=== PATIENT | male | born 1945 | race Caucasian/White ===

== ENCOUNTER → 2022-09-20 | Outpatient (CLI) | payer OTHER ==
[~2022-09-20] MED LIST: ASPI81TA26 PO; CELE1CAP9 PO; COMBAER6 INH; COQ-100C5 PO; EZET10TA21 PO; FLUT1BLS3 INH; HOME MED LIST COMPLETE! XX SCH; LIDOCAINE 1% MDV 20ML VIAL As Ordered ONE; LISI20TA33 PO; LISI40TA4 PO; METO1TAB32 PO; ROSU40TA4 PO; SPIR1AER INH; SPIR1CAP INH; VITA100093 PO; VITMTA PO
[2022-09-20 08:45] LABS: HEMATOCRIT 40.7 % (42.0-52.0); HEMOGLOBIN 14.1 g/dl (13.5-17.5); MEAN CORPUSCULAR HEMOGLOBIN 33.1 pg (27.0-33.0); MEAN CORPUSCULAR HGB CONC 34.6 g/dl (32.0-36.5); MEAN CORPUSCULAR VOLUME 95.5 fl (80.0-96.0); PLATELET COUNT, AUTOMATED 131 10^3/uL (150-450); RED BLOOD COUNT 4.26 10^6/uL (4.30-6.10); WHITE BLOOD COUNT 7.2 10^3/uL (4.0-10.0)
[2022-09-20 09:17] LABS: INR 1.05; PROTHROMBIN TIME 13.9 SECONDS (12.5-14.5)
[2022-09-20 11:31] VITALS: BP 140/69
== END ==
LOC: M IRPRO 07:48
PROVIDERS: ATTEND Physician Assistant
DX: R91.1 Solitary pulmonary nodule (principal)

== ENCOUNTER → 2022-10-28 | Outpatient (CLI) | payer MEDICARE, OTHER ==
[~2022-10-28] MED LIST changes: -HOME MED LIST COMPLETE! XX SCH; -LIDOCAINE 1% MDV 20ML VIAL As Ordered ONE
== END ==
LOC: M PLARAD 12:33
PROVIDERS: ATTEND Physician Assistant
DX: C34.31 Malignant neoplasm of lower lobe, right bronchus or lung (principal)
CPT/HCPCS: 78815; A9552

== ENCOUNTER → 2022-11-20 | Outpatient (CLI) | payer MEDICARE, OTHER | LOC: M ONCR 08:30 | PROVIDERS: ATTEND General Practice | DX: C34.31 Malignant neoplasm of lower lobe, right bronchus or lung (principal); E78.5 Hyperlipidemia, unspecified; I34.9 Nonrheumatic mitral valve disorder, unspecified; I20.9 Angina pectoris, unspecified; J44.9 Chronic obstructive pulmonary disease, unspecified; Z79.1 Long term (current) use of non-steroidal anti-inflammatories (NSAID); Z79.51 Long term (current) use of inhaled steroids; Z79.82 Long term (current) use of aspirin; Z79.899 Other long term (current) drug therapy; Z87.891 Personal history of nicotine dependence; Z88.1 Allergy status to other antibiotic agents ==

== ENCOUNTER 2022-12-06 08:59 | Outpatient (RCR) | payer MEDICARE, OTHER ==
[~2022-12-06 08:59] MED LIST changes: +PRED50TA PO
== END 2022-12-20 ==
LOC: M ONCR 08:59
PROVIDERS: ATTEND General Practice
DX: C34.31 Malignant neoplasm of lower lobe, right bronchus or lung (principal)

== ENCOUNTER → 2023-02-27 | Outpatient (CLI) | payer MEDICARE, OTHER ==
[~2023-02-27] MED LIST changes: +ISOVUE-370 76% 100ML VIAL As Ordered ONE
== END ==
LOC: M RAD 09:20
PROVIDERS: ATTEND General Practice
DX: C34.31 Malignant neoplasm of lower lobe, right bronchus or lung (principal); J44.9 Chronic obstructive pulmonary disease, unspecified
CPT/HCPCS: 71260; Q9967

== ENCOUNTER → 2023-03-07 | Outpatient (CLI) | payer MEDICARE, OTHER ==
[~2023-03-07] MED LIST changes: -ISOVUE-370 76% 100ML VIAL As Ordered ONE
== END ==
LOC: M ONCR 10:13
PROVIDERS: ATTEND General Practice
DX: C34.31 Malignant neoplasm of lower lobe, right bronchus or lung (principal); L59.8 Other specified disorders of the skin and subcutaneous tissue related to radiation; Z71.2 Person consulting for explanation of examination or test findings; Z79.52 Long term (current) use of systemic steroids; Z79.82 Long term (current) use of aspirin; Z79.899 Other long term (current) drug therapy; Z87.891 Personal history of nicotine dependence; Z88.1 Allergy status to other antibiotic agents; Z92.3 Personal history of irradiation

== ENCOUNTER → 2023-09-02 | Outpatient (CLI) | payer MEDICARE, OTHER ==
[~2023-09-02] MED LIST changes: +CELE0.09 PO; -CELE1CAP9 PO
== END ==
LOC: M RAD 10:16
PROVIDERS: ATTEND General Practice
DX: C34.31 Malignant neoplasm of lower lobe, right bronchus or lung (principal); J44.9 Chronic obstructive pulmonary disease, unspecified; J90 Pleural effusion, not elsewhere classified

== ENCOUNTER → 2023-09-09 | Outpatient (CLI) | payer MEDICARE, OTHER | LOC: M ONCR 10:14 | PROVIDERS: ATTEND General Practice | DX: C34.31 Malignant neoplasm of lower lobe, right bronchus or lung (principal); J70.1 Chronic and other pulmonary manifestations due to radiation; W88.8XXA Exposure to other ionizing radiation, initial encounter; Z71.2 Person consulting for explanation of examination or test findings; Z79.1 Long term (current) use of non-steroidal anti-inflammatories (NSAID); Z79.51 Long term (current) use of inhaled steroids; Z79.82 Long term (current) use of aspirin; Z79.899 Other long term (current) drug therapy; Z87.891 Personal history of nicotine dependence; Z88.1 Allergy status to other antibiotic agents; Z92.3 Personal history of irradiation ==

== ENCOUNTER 2024-03-02 12:52 | Inpatient (IN) | payer OTHER, MEDICARE ==
[~2024-03-02] VITALS: Ht 167.6 cm; Wt 58.8 kg
[~2024-03-02 12:52] MED LIST changes: -ROSU40TA4 PO; +ROSU40TA63 PO
[2024-03-02] MEDS ORDERED: OMEP20TA2 PO (13:05)
[2024-03-02 14:17] LABS: BASO % 0.2 % (0.0-1.0); EOS # 0.1 10^3/uL (0.0-0.5); EOS % 0.5 % (0.0-3.0); HEMATOCRIT 44.7 % (42.0-52.0); LYMPH # 0.8 10^3/uL (1.5-5.0); LYMPH % 6.8 % (24.0-44.0); MEAN CORPUSCULAR HEMOGLOBIN 32.3 pg (27.0-33.0); MEAN CORPUSCULAR HGB CONC 33.6 g/dl (32.0-36.5); MEAN CORPUSCULAR VOLUME 96.3 fl (80.0-96.0); MONO # 0.8 10^3/uL (0.0-0.8); MONO % 6.7 % (2.0-8.0); NEUTROPHILS # 9.5 10^3/uL (1.5-8.5); NEUTROPHILS % 85.4 % (36.0-66.0); PLATELET COUNT, AUTOMATED 232 10^3/uL (150-450); RED BLOOD COUNT 4.64 10^6/uL (4.30-6.10); WHITE BLOOD COUNT 11.1 10^3/uL (4.0-10.0)
[2024-03-02] MEDS ORDERED: ISOVUE-370 76% 100ML VIAL As Ordered ONE (14:19)
[2024-03-02] MEDS: ALBUTEROL SULFATE 2.5MG/0.5ML INH NEB SOLN INH ONE (14:26)
[2024-03-02] MEDS: IPRATROPIUM 0.5MG/ALBUTEROL 2.5MG INH SOL UD 3ML (DUONEB) NEB ONE (14:26)
[2024-03-02 14:34] LABS: LIPASE 25 U/L (12-53)
[2024-03-02 14:35] LABS: CK-MB VALUE MASS < 1.0 NG/ML (<3.6)
[2024-03-02 14:37] LABS: ALKALINE PHOSPHATASE 131 U/L (46-116); ALT/SGPT 26 U/L (7.0-40); AST/SGOT 21 U/L (<34); BILIRUBIN,DIRECT 0.2 MG/DL (<0.4); BILIRUBIN,TOTAL 0.7 MG/DL (0.3-1.2); BLOOD UREA NITROGEN 20 MG/DL (9-23); CALCIUM LEVEL 9.4 MG/DL (8.3-10.6); CARBON DIOXIDE LEVEL 27 MMOL/L (20-31); CHLORIDE LEVEL 106 MMOL/L (98-107); CPK CREATINE PHOSPHOKINASE 40 U/L (46-171); CREATININE FOR GFR 0.71 MG/DL (0.70-1.30); GLOMERULAR FILTRATION RATE > 60.0 (>42); GLUCOSE, FASTING 101 MG/DL (74-106); POTASSIUM SERUM 4.1 MMOL/L (3.5-5.1); SODIUM LEVEL 139 MMOL/L (136-145); TOTAL PROTEIN 7.1 G/DL (5.7-8.2)
[2024-03-02 14:38] LABS: THYROID STIMULATING HORMONE 0.791 uIU/ML (0.55-4.78)
[2024-03-02 14:39] LABS: FREE T4 1.37 NG/DL (0.89-1.76)
[2024-03-02] MEDS: methylPREDNISolone 125MG 2ML VIAL IV ONE (14:54)
[2024-03-02 15:40] LABS: CK-MB VALUE MASS < 1.0 NG/ML (<3.6)
[2024-03-02 15:42] LABS: CPK CREATINE PHOSPHOKINASE 39 U/L (46-171); MB/CK RELATIVE INDEX 2.56 (< OR =4)
[2024-03-02] MEDS ORDERED: COQ1200C PO (16:54)
[2024-03-02] MEDS ORDERED: MED REC COMMENT (16:54)
[2024-03-02] MEDS ORDERED: HOME MED LIST COMPLETE! XX SCH (16:55)
[2024-03-02 17:30] VITALS: BP 161/80; TEMP 97.6; O2SAT 92
[2024-03-02] MEDS ORDERED: COMBIVENT RESPIMAT 100-20MCG INHALER 4GM INH PRN (17:30)
[2024-03-02] MEDS: FUROSEMIDE 40MG/4ML VIAL IV ONE (17:39)
[2024-03-02] MEDS: hydrALAZINE 20MG/ML 1ML VIAL IV STA (17:40)
[2024-03-02 17:54] LABS: ABG BASE EXCESS -0.3 (-2.0-2.0); ABG HCO3 22.6 MMOL/L (22.0-26.0); ABG O2 SATURATION 97.3 % (95.0-99.0); ABG PARTIAL PRESSURE O2 93.3 mmHg (75.0-100.0); ABG STANDARD HCO3 24.3 MMOL/L. (22.0-26.0); ABG TOTAL CO2 23.5 MMOL/L (23.0-31.0); ABG pH (ARTERIAL) 7.466 UNITS (7.350-7.450)
[2024-03-02 18:00] VITALS: BP 171/77; O2SAT 91
[2024-03-02] MEDS: IPRATROPIUM 0.5MG/ALBUTEROL 2.5MG INH SOL UD 3ML (DUONEB) NEB PRN (18:04)
[2024-03-02 18:35] VITALS: BP 113/69; O2SAT 94
[2024-03-02 18:38] VITALS: BP 113/56; O2SAT 92
[2024-03-02 18:56] LABS: APPEARANCE, BODY FLUID HAZY (CLEAR); PH BODY FLUID 7.607 UNITS (NOT ESTABLISHED); PLEURAL FL COLOR RED (COLORLESS); SOURCE, BODY FLUID PLEURAL; SOURCE, BODY FLUID pH PLEURAL
[2024-03-02 19:18] LABS: SOURCE, BODY FLUID GLUCOSE PLEURAL
[2024-03-02 19:19] LABS: LDH, BODY FLUID 544 U/L (NOT ESTABLISHED); SOURCE, BODY FLUID LDH PLEURAL
[2024-03-02 19:20] LABS: AMYLASE, BODY FLUID 57 U/L (NOT ESTABLISHED); SOURCE, BODY FLUID AMYLASE PLEURAL; SOURCE, BODY FLUID TOT PROTEIN PLEURAL; TOTAL PROTEIN, BODY FLUID 4.8 G/DL (NOT ESTABLISHED)
[2024-03-02] MEDS: IPRATROPIUM 0.5MG/ALBUTEROL 2.5MG INH SOL UD 3ML (DUONEB) NEB SCH (20:02)
[2024-03-02] MEDS: ROSUVASTATIN 10 MG TAB (CRESTOR) PO SCH (20:36)
[2024-03-02] MEDS: EZETIMIBE 10MG TABLET (ZETIA) PO SCH (20:36)
[2024-03-02] MEDS: ASPIRIN 81MG ENTERIC TABLET PO SCH (20:37)
[2024-03-02] MEDS: ACETAMINOPHEN 500 MG TAB PO ONE (21:11)
[2024-03-02 21:32] VITALS: BP 114/63; TEMP 97.5; O2SAT 92
[2024-03-03] VITALS: BP 106/64; TEMP 97.6; O2SAT 92
[2024-03-03] MEDS: hydrALAZINE 20MG/ML 1ML VIAL IV SCH (00:30)
[2024-03-03 03:53] VITALS: BP 127/77; TEMP 97.1; O2SAT 94
[2024-03-03 07:35] LABS: IONIZED CALCIUM 4.8 MG/DL (4.5-5.3)
[2024-03-03] MEDS: TIOTROPIUM INHALER/CAPSULE (SPIRIVA) INH SCH (07:41)
[2024-03-03 07:51] LABS: HEMATOCRIT 43.8 % (42.0-52.0); LYMPH # 0.4 10^3/uL (1.5-5.0); LYMPH % 4.2 % (24.0-44.0); MEAN CORPUSCULAR HEMOGLOBIN 32.2 pg (27.0-33.0); MEAN CORPUSCULAR HGB CONC 34.2 g/dl (32.0-36.5); MONO # 0.3 10^3/uL (0.0-0.8); NEUTROPHILS # 8.7 10^3/uL (1.5-8.5); NEUTROPHILS % 92.4 % (36.0-66.0); PLATELET COUNT, AUTOMATED 237 10^3/uL (150-450); RED BLOOD COUNT 4.66 10^6/uL (4.30-6.10); WHITE BLOOD COUNT 9.4 10^3/uL (4.0-10.0)
[2024-03-03 08:00] VITALS: BP 125/67; TEMP 97.7; O2SAT 93
[2024-03-03 08:08] LABS: ALBUMIN 2.9 G/DL (3.2-5.2); ALKALINE PHOSPHATASE 121 U/L (46-116); ALT/SGPT 24 U/L (7.0-40); AST/SGOT 18 U/L (<34); BILIRUBIN,TOTAL 0.6 MG/DL (0.3-1.2); BLOOD UREA NITROGEN 29 MG/DL (9-23); CALCIUM LEVEL 9.5 MG/DL (8.3-10.6); CARBON DIOXIDE LEVEL 27 MMOL/L (20-31); CHLORIDE LEVEL 103 MMOL/L (98-107); CHOLESTEROL LEVEL 148 MG/DL (<200); CHOLESTEROL RISK RATIO 2.84 (<5); CREATININE FOR GFR 0.74 MG/DL (0.70-1.30); GLOMERULAR FILTRATION RATE > 60.0 (>42); GLUCOSE, FASTING 157 MG/DL (74-106); HDL CHOLESTEROL 52.1 MG/DL (>40); LDL CHOLESTEROL 86.1 MG/DL (<100); NON-HDL-C 95.9 MG/DL; POTASSIUM SERUM 3.9 MMOL/L (3.5-5.1); SODIUM LEVEL 138 MMOL/L (136-145); TRIGLYCERIDES LEVEL 49 MG/DL (<150)
[2024-03-03] MEDS: OMEPRAZOLE 20MG CAP PO SCH (09:25)
[2024-03-03] MEDS: VITAMIN D 1,000 INTERNATIONAL UNITS TABLET PO SCH (09:25)
[2024-03-03] MEDS: lisinopriL 40MG TAB PO SCH (09:25)
[2024-03-03 12:00] VITALS: BP_SYST 102; BP_SYST 86; BP_DIAS 50; BP_DIAS 55; TEMP 97.5; O2SAT 94
[2024-03-03 12:40] VITALS: BP 102/55
[2024-03-03 15:42] LABS: IONIZED CALCIUM 4.7 MG/DL (4.5-5.3)
[2024-03-03] MEDS: AMIODARONE 150MG/3ML VIAL IVP STA (15:48)
[2024-03-03] MEDS: NS 500 ML IV ONE (15:53)
[2024-03-03 15:57] VITALS: BP 101/58; TEMP 98.4; O2SAT 93
[2024-03-03 16:15] LABS: MAGNESIUM LEVEL 2.3 MG/DL (1.8-2.4); POTASSIUM SERUM 3.7 MMOL/L (3.5-5.1)
[2024-03-03 16:16] LABS: CK-MB VALUE MASS 3.2 NG/ML (<3.6)
[2024-03-03 16:21] LABS: MB/CK RELATIVE INDEX 2.83 (< OR =4)
[2024-03-03] MEDS: MAGNESIUM OXIDE 400MG TAB (MAG-OX) PO ONE (16:36)
[2024-03-03] MEDS: POTASSIUM CHLORIDE 10MEQ SR TABLET PO ONE (16:36)
[2024-03-03] MEDS: MAG SULF 1GM/100ML (MAG RUN) 1 GM in IV 1 EA IV ONE (16:37)
[2024-03-03] MEDS: KCL 10MEQ/100ML SWI (KRUN) 10 MEQ in IV 1 EA IV ONE ×2 (17:41→17:46)
[2024-03-03] MEDS: CALCIUM GLUCONATE 1,000 MG in D5W MINI-BAG PLUS 100 ML IV ONE (17:41)
[2024-03-03 18:24] LABS: IONIZED CALCIUM 3.9 MG/DL (4.5-5.3)
[2024-03-03 18:50] LABS: MAGNESIUM LEVEL 2.5 MG/DL (1.8-2.4)
== END 2024-03-03 20:07 | disposition short-term general hospital (02) | DRG 180 ==
LOC: M ED 12:52 → M ED INP 16:22 → M PCU 17:22
PROVIDERS: ADMIT General Practice; ATTEND General Practice
PROC: 0W9900Z Drainage of Right Pleural Cavity with Drainage Device, Open Approach (ICD-10-PCS; principal; 2024-03-02)
PROC: B246ZZZ Ultrasonography of Right and Left Heart (ICD-10-PCS; 2024-03-03)
DX: C34.31 Malignant neoplasm of lower lobe, right bronchus or lung (principal); J96.01 Acute respiratory failure with hypoxia; J91.0 Malignant pleural effusion; J98.11 Atelectasis; I47.20 Ventricular tachycardia, unspecified; I25.10 Atherosclerotic heart disease of native coronary artery without angina pectoris; J44.9 Chronic obstructive pulmonary disease, unspecified; E78.5 Hyperlipidemia, unspecified; K21.9 Gastro-esophageal reflux disease without esophagitis; I34.0 Nonrheumatic mitral (valve) insufficiency; Z87.891 Personal history of nicotine dependence; Z89.022 Acquired absence of left finger(s); I16.0 Hypertensive urgency; N28.1 Cyst of kidney, acquired; Z88.1 Allergy status to other antibiotic agents; I27.20 Pulmonary hypertension, unspecified; Z92.3 Personal history of irradiation; I36.1 Nonrheumatic tricuspid (valve) insufficiency; M51.86 Other intervertebral disc disorders, lumbar region; Z79.82 Long term (current) use of aspirin; Z79.899 Other long term (current) drug therapy

== ENCOUNTER → 2024-03-30 | Outpatient (CLI) | payer OTHER, MEDICARE ==
[~2024-03-30] MED LIST changes: +COQ1200C PO; +MED REC COMMENT; +OMEP20TA2 PO
== END ==
LOC: M PLARAD 14:08
PROVIDERS: ATTEND General Practice
DX: C34.31 Malignant neoplasm of lower lobe, right bronchus or lung (principal)
CPT/HCPCS: 78815; A9552

== ENCOUNTER → 2024-04-16 | Outpatient (CLI) | payer MEDICARE, OTHER ==
[~2024-04-16] MED LIST changes: +AZIT-12 PO; +LIDOCAINE 1% MDV 20ML VIAL As Ordered ONE; +MIDAZOLAM INJ 2MG/2ML VIAL As Ordered ONE; +ceFAZolin 2 GM/D5W 50 ML IV BAG As Ordered ONE; +fentaNYL 100 MCG/2 ML INJECTION As Ordered ONE
[2024-04-16 12:20] VITALS: TEMP 97.8
[2024-04-16 13:35] VITALS: BP 139/72
[2024-04-16 13:56] VITALS: O2SAT 95
== END ==
LOC: M IRPRO 12:06
PROVIDERS: ATTEND Specialist
DX: C34.90 Malignant neoplasm of unspecified part of unspecified bronchus or lung (principal)
CPT/HCPCS: 36561; 99152; 99153; C1769; J0690; J2250; J3010

== ENCOUNTER → 2024-04-21 | Outpatient (RCR) | payer OTHER, MEDICARE ==
[~2024-04-21] MED LIST changes: +ALBU2.5V10 INH; +LIDO30CR18 TOP; -LIDOCAINE 1% MDV 20ML VIAL As Ordered ONE; -MIDAZOLAM INJ 2MG/2ML VIAL As Ordered ONE; +MORP1SOL5 PO; +PRED20TA; -ceFAZolin 2 GM/D5W 50 ML IV BAG As Ordered ONE; -fentaNYL 100 MCG/2 ML INJECTION As Ordered ONE
== END ==
LOC: M ONCR 04-08 13:56
PROVIDERS: ATTEND General Practice
DX: Z51.0 Encounter for antineoplastic radiation therapy (principal); C34.31 Malignant neoplasm of lower lobe, right bronchus or lung

== ENCOUNTER 2024-04-27 13:52 | Outpatient (RCR) | payer OTHER, MEDICARE ==
[~2024-04-27 13:52] MED LIST changes: -ROSU40TA63 PO; +ROSU40TA81 PO
[2024-05-12] MEDS ORDERED: PANT40TA29 PO (18:08)
[2024-05-12] MEDS ORDERED: METO1TAB32 PO (18:08)
[2024-05-12] MEDS ORDERED: CELE0.09 PO (18:09)
[2024-05-12] MEDS ORDERED: CALCTAB8 PO (18:12)
== END 2024-05-22 ==
LOC: M ONCR 13:52
PROVIDERS: ATTEND General Practice
DX: Z51.0 Encounter for antineoplastic radiation therapy (principal); C34.31 Malignant neoplasm of lower lobe, right bronchus or lung

== ENCOUNTER 2024-05-12 14:29 | Inpatient (IN) | payer OTHER, MEDICARE ==
[~2024-05-12] VITALS: Ht 167.6 cm; Wt 60.5 kg
[~2024-05-12 14:29] MED LIST changes: +ROSU40TA63 PO; -ROSU40TA81 PO
[2024-05-12 15:22] LABS: VENOUS BASE EXCESS 4.1 (-2.0-2.0); VENOUS HCO3 30.1 MMOL/L (23.0-27.0); VENOUS O2 SATURATION 53.9 % (60.0-80.0); VENOUS PARTIAL PRESSURE CO2 50.4 mmHg (38.0-50.0); VENOUS PARTIAL PRESSURE O2 30.3 mmHg (30.0-50.0); VENOUS PH 7.394 UNITS (7.330-7.430); VENOUS TOTAL CO2 31.6 MMOL/L (24.0-28.0)
[2024-05-12 15:30] LABS: BASO % 0.5 % (0.0-1.0); EOS # 0.2 10^3/uL (0.0-0.5); EOS % 3.1 % (0.0-3.0); HEMATOCRIT 42.2 % (42.0-52.0); HEMOGLOBIN 13.8 g/dl (13.5-17.5); LYMPH # 0.7 10^3/uL (1.5-5.0); LYMPH % 10.3 % (24.0-44.0); MEAN CORPUSCULAR HEMOGLOBIN 30.8 pg (27.0-33.0); MEAN CORPUSCULAR HGB CONC 32.7 g/dl (32.0-36.5); MEAN CORPUSCULAR VOLUME 94.2 fl (80.0-96.0); MONO # 0.6 10^3/uL (0.0-0.8); MONO % 9.9 % (2.0-8.0); NEUTROPHILS # 4.9 10^3/uL (1.5-8.5); NEUTROPHILS % 75.7 % (36.0-66.0); PLATELET COUNT, AUTOMATED 154 10^3/uL (150-450); RED BLOOD COUNT 4.48 10^6/uL (4.30-6.10); WHITE BLOOD COUNT 6.5 10^3/uL (4.0-10.0)
[2024-05-12 15:57] LABS: ALBUMIN 2.8 G/DL (3.2-5.2); ALKALINE PHOSPHATASE 114 U/L (46-116); ALT/SGPT 25 U/L (7.0-40); AST/SGOT 34 U/L (<34); BILIRUBIN,DIRECT 0.3 MG/DL (<0.4); BILIRUBIN,TOTAL 0.7 MG/DL (0.3-1.2); BLOOD UREA NITROGEN 17 MG/DL (9-23); CALCIUM LEVEL 8.8 MG/DL (8.3-10.6); CARBON DIOXIDE LEVEL 32 MMOL/L (20-31); CHLORIDE LEVEL 107 MMOL/L (98-107); CREATININE FOR GFR 0.69 MG/DL (0.70-1.30); GLOMERULAR FILTRATION RATE > 60.0 (>42); GLUCOSE, FASTING 90 MG/DL (74-106); POTASSIUM SERUM 3.5 MMOL/L (3.5-5.1); SODIUM LEVEL 142 MMOL/L (136-145); TOTAL PROTEIN 6.7 G/DL (5.7-8.2)
[2024-05-12] MEDS: fentaNYL 100 MCG/2 ML INJECTION IV STA (18:01)
[2024-05-12] MEDS: MIDAZOLAM INJ 2MG/2ML VIAL IV STA (18:01)
[2024-05-12] MEDS ORDERED: METO1TAB32 PO (18:08)
[2024-05-12] MEDS ORDERED: PANT40TA29 PO (18:08)
[2024-05-12] MEDS ORDERED: CELE0.09 PO (18:09)
[2024-05-12] MEDS ORDERED: CALCTAB8 PO (18:12)
[2024-05-12] MEDS ORDERED: COMBIVENT RESPIMAT 100-20MCG INHALER 4GM INH PRN (18:15)
[2024-05-12] MEDS ORDERED: HOME MED LIST COMPLETE! XX SCH (18:15)
[2024-05-12] MEDS ORDERED: EMLA CREAM 5GM TUBE (LIDOCAINE/PRILOCAINE) TOP PRN (18:15)
[2024-05-12 18:32] LABS: INR 1.23; PARTIAL THROMBOPLASTIN TIME 35.3 SECONDS (24.8-34.2); PROTHROMBIN TIME 15.1 SECONDS (12.5-14.5)
[2024-05-12 20:10] VITALS: BP 122/65; TEMP 97.7; O2SAT 95
[2024-05-12] MEDS ORDERED: KETOROLAC 30 MG/ML 1ML VIAL IV PRN (20:50)
[2024-05-12] MEDS: LevoFLOXacin 750 MG TABLET PO SCH (20:53)
[2024-05-12] MEDS: ROSUVASTATIN 10 MG TAB (CRESTOR) PO SCH (20:53)
[2024-05-12] MEDS: METOPROLOL SUCC *XL* 25MG TAB (TopROL *XL*) PO SCH (20:53)
[2024-05-12] MEDS: ACETAMINOPHEN TAB 650MG DOSE (2X325MG) PO PRN (20:54)
[2024-05-12] MEDS: EZETIMIBE 10MG TABLET (ZETIA) PO SCH (20:54)
[2024-05-12] MEDS: ADVAIR HFA 115/21MCG INHALER INH SCH (21:09)
[2024-05-13] VITALS: BP 104/59; TEMP 98.1; O2SAT 95
[2024-05-13 03:26] VITALS: BP 127/68; TEMP 97.9; O2SAT 95
[2024-05-13 04:35] LABS: HEMATOCRIT 37.5 % (42.0-52.0); HEMOGLOBIN 12.1 g/dl (13.5-17.5); MEAN CORPUSCULAR HGB CONC 32.3 g/dl (32.0-36.5); MEAN CORPUSCULAR VOLUME 96.2 fl (80.0-96.0); PLATELET COUNT, AUTOMATED 150 10^3/uL (150-450); WHITE BLOOD COUNT 7.1 10^3/uL (4.0-10.0)
[2024-05-13] MEDS: ALBUTEROL SULFATE 2.5MG/0.5ML INH NEB SOLN NEB PRN (06:23)
[2024-05-13 07:52] VITALS: BP 122/69; TEMP 98; O2SAT 95
[2024-05-13] MEDS: TIOTROPIUM INHALER/CAPSULE (SPIRIVA) INH SCH (08:34)
[2024-05-13 08:37] LABS: ALBUMIN 2.3 G/DL (3.2-5.2); ALKALINE PHOSPHATASE 96 U/L (46-116); ALT/SGPT 19 U/L (7.0-40); AST/SGOT 23 U/L (<34); BILIRUBIN,TOTAL 0.6 MG/DL (0.3-1.2); BLOOD UREA NITROGEN 19 MG/DL (9-23); CALCIUM LEVEL 8.4 MG/DL (8.3-10.6); CARBON DIOXIDE LEVEL 30 MMOL/L (20-31); CHLORIDE LEVEL 108 MMOL/L (98-107); CREATININE FOR GFR 0.76 MG/DL (0.70-1.30); GLOMERULAR FILTRATION RATE > 60.0 (>42); GLUCOSE, FASTING 84 MG/DL (74-106); POTASSIUM SERUM 3.6 MMOL/L (3.5-5.1); SODIUM LEVEL 143 MMOL/L (136-145); TOTAL PROTEIN 5.8 G/DL (5.7-8.2)
[2024-05-13] MEDS: PANTOPRAZOLE 40MG TAB (PROTONIX) PO SCH (09:22)
[2024-05-13 11:47] VITALS: BP 130/70; TEMP 97.4; O2SAT 94
[2024-05-13 16:00] VITALS: BP 136/70; TEMP 97.6; O2SAT 92
[2024-05-13 20:00] VITALS: BP 127/64; TEMP 97.2; O2SAT 91
[2024-05-14] VITALS (7 sets, daily range): BP systolic 98–122; BP diastolic 55–62; TEMP 97.5–98.5; O2SAT 91–98
[2024-05-14 06:02] LABS: HEMATOCRIT 35.8 % (42.0-52.0); HEMOGLOBIN 11.9 g/dl (13.5-17.5); MEAN CORPUSCULAR HEMOGLOBIN 31.8 pg (27.0-33.0); MEAN CORPUSCULAR HGB CONC 33.2 g/dl (32.0-36.5); MEAN CORPUSCULAR VOLUME 95.7 fl (80.0-96.0); PLATELET COUNT, AUTOMATED 126 10^3/uL (150-450); RED BLOOD COUNT 3.74 10^6/uL (4.30-6.10); WHITE BLOOD COUNT 7.4 10^3/uL (4.0-10.0)
[2024-05-14 06:32] LABS: ALBUMIN 2.1 G/DL (3.2-5.2); ALKALINE PHOSPHATASE 86 U/L (46-116); ALT/SGPT 13 U/L (7.0-40); AST/SGOT 18 U/L (<34); BILIRUBIN,TOTAL 0.6 MG/DL (0.3-1.2); BLOOD UREA NITROGEN 18 MG/DL (9-23); CALCIUM LEVEL 8.5 MG/DL (8.3-10.6); CARBON DIOXIDE LEVEL 31 MMOL/L (20-31); CHLORIDE LEVEL 107 MMOL/L (98-107); CREATININE FOR GFR 0.81 MG/DL (0.70-1.30); GLOMERULAR FILTRATION RATE > 60.0 (>42); GLUCOSE, FASTING 99 MG/DL (74-106); POTASSIUM SERUM 3.7 MMOL/L (3.5-5.1); SODIUM LEVEL 140 MMOL/L (136-145); TOTAL PROTEIN 5.4 G/DL (5.7-8.2)
[2024-05-14 12:06] LABS: PH BODY FLUID > 7.800 UNITS (NOT ESTABLISHED); SOURCE, BODY FLUID pH PLEURAL
[2024-05-14 12:14] LABS: SOURCE, BODY FLUID ALBUMIN PLEURAL
[2024-05-14 12:19] LABS: SOURCE, BODY FLUID GLUCOSE PLEURAL
[2024-05-14 12:21] LABS: AMYLASE, BODY FLUID 49 U/L (NOT ESTABLISHED); LDH, BODY FLUID 556 U/L (NOT ESTABLISHED); SOURCE, BODY FLUID AMYLASE PLEURAL; SOURCE, BODY FLUID LDH PLEURAL
[2024-05-14 12:40] LABS: PLEURAL FL COLOR RED (COLORLESS); SOURCE, BODY FLUID PLEURAL
[2024-05-14 12:41] LABS: APPEARANCE, BODY FLUID TURBID (CLEAR)
[2024-05-14 12:59] LABS: SOURCE, BODY FLUID TOT PROTEIN PLEURAL; TOTAL PROTEIN, BODY FLUID 3.2 G/DL (NOT ESTABLISHED)
[2024-05-14] MEDS: DOCUSATE SODIUM 100MG CAPSULE PO ONE (21:13)
[2024-05-15] VITALS (8 sets, daily range): BP systolic 102–120; BP diastolic 57–79; TEMP 97.7–99.9; O2SAT 92–97
[2024-05-15 05:29] LABS: HEMATOCRIT 35.5 % (42.0-52.0); HEMOGLOBIN 11.5 g/dl (13.5-17.5); MEAN CORPUSCULAR HGB CONC 32.4 g/dl (32.0-36.5); MEAN CORPUSCULAR VOLUME 95.7 fl (80.0-96.0); PLATELET COUNT, AUTOMATED 134 10^3/uL (150-450); RED BLOOD COUNT 3.71 10^6/uL (4.30-6.10); WHITE BLOOD COUNT 6.9 10^3/uL (4.0-10.0)
[2024-05-15 05:50] LABS: ALKALINE PHOSPHATASE 81 U/L (46-116); ALT/SGPT 22 U/L (7.0-40); AST/SGOT 27 U/L (<34); BILIRUBIN,TOTAL 0.5 MG/DL (0.3-1.2); BLOOD UREA NITROGEN 19 MG/DL (9-23); CALCIUM LEVEL 8.3 MG/DL (8.3-10.6); CARBON DIOXIDE LEVEL 31 MMOL/L (20-31); CHLORIDE LEVEL 104 MMOL/L (98-107); CREATININE FOR GFR 0.82 MG/DL (0.70-1.30); GLOMERULAR FILTRATION RATE > 60.0 (>42); GLUCOSE, FASTING 95 MG/DL (74-106); POTASSIUM SERUM 3.7 MMOL/L (3.5-5.1); SODIUM LEVEL 138 MMOL/L (136-145); TOTAL PROTEIN 5.5 G/DL (5.7-8.2)
[2024-05-15] MEDS: GLYCOPYRROLATE INJ 0.2 MG/ML 2 ML VIAL NEB SCH (08:00)
[2024-05-15] MEDS: FORMOTEROL FUMARATE 20 MCG/2 ML INHALATION SOLUTION (PERFOROMIST) INH SCH (09:29)
[2024-05-15] MEDS: BUDESONIDE 0.5 MG/2 ML INHALATION SUSPENSION NEB SCH (09:29)
[2024-05-15] MEDS: SODIUM CHLORIDE IPL ONE (11:25)
[2024-05-15] MEDS: [UNRECOGNIZED DRUG - OTHER] IPL ONE (11:25)
[2024-05-15] MEDS: LIDOCAINE 1% SDV 30ML VIAL IPL ONE (11:25)
[2024-05-15] MEDS: MORPHINE 2 MG/ML 1ML VIAL IV ONE (11:25)
[2024-05-15] MEDS: SODIUM CHLORIDE 0.9% 100ML BAG INTRAPLEU ONE (11:25)
[2024-05-16] VITALS (9 sets, daily range): BP systolic 103–124; BP diastolic 56–64; TEMP 96.9–98.3; O2SAT 84–97
[2024-05-16 06:29] LABS: HEMATOCRIT 36.5 % (42.0-52.0); HEMOGLOBIN 11.8 g/dl (13.5-17.5); MEAN CORPUSCULAR HEMOGLOBIN 31.1 pg (27.0-33.0); MEAN CORPUSCULAR HGB CONC 32.3 g/dl (32.0-36.5); MEAN CORPUSCULAR VOLUME 96.1 fl (80.0-96.0); PLATELET COUNT, AUTOMATED 144 10^3/uL (150-450); WHITE BLOOD COUNT 7.3 10^3/uL (4.0-10.0)
[2024-05-16 06:44] LABS: ALKALINE PHOSPHATASE 79 U/L (46-116); ALT/SGPT 31 U/L (7.0-40); AST/SGOT 47 U/L (<34); BILIRUBIN,TOTAL 0.5 MG/DL (0.3-1.2); BLOOD UREA NITROGEN 21 MG/DL (9-23); CALCIUM LEVEL 8.5 MG/DL (8.3-10.6); CARBON DIOXIDE LEVEL 29 MMOL/L (20-31); CHLORIDE LEVEL 107 MMOL/L (98-107); CREATININE FOR GFR 0.93 MG/DL (0.70-1.30); GLOMERULAR FILTRATION RATE > 60.0 (>42); GLUCOSE, FASTING 120 MG/DL (74-106); POTASSIUM SERUM 4.1 MMOL/L (3.5-5.1); SODIUM LEVEL 138 MMOL/L (136-145); TOTAL PROTEIN 5.5 G/DL (5.7-8.2)
[2024-05-16] MEDS: SENNA 8.6 MG TAB (SENOKOT) PO PRN (15:22)
[2024-05-17 00:05] VITALS: BP 137/73; TEMP 97.7; O2SAT 96
[2024-05-17 03:51] VITALS: BP 105/56; TEMP 98.1; O2SAT 96
[2024-05-17 07:08] LABS: HEMATOCRIT 34.4 % (42.0-52.0); HEMOGLOBIN 11.2 g/dl (13.5-17.5); MEAN CORPUSCULAR HEMOGLOBIN 31.1 pg (27.0-33.0); MEAN CORPUSCULAR HGB CONC 32.6 g/dl (32.0-36.5); MEAN CORPUSCULAR VOLUME 95.6 fl (80.0-96.0); PLATELET COUNT, AUTOMATED 128 10^3/uL (150-450); WHITE BLOOD COUNT 6.4 10^3/uL (4.0-10.0)
[2024-05-17 07:40] LABS: ALBUMIN 1.9 G/DL (3.2-5.2); ALKALINE PHOSPHATASE 79 U/L (46-116); ALT/SGPT 41 U/L (7.0-40); AST/SGOT 56 U/L (<34); BILIRUBIN,TOTAL 0.4 MG/DL (0.3-1.2); BLOOD UREA NITROGEN 17 MG/DL (9-23); CALCIUM LEVEL 8.6 MG/DL (8.3-10.6); CARBON DIOXIDE LEVEL 31 MMOL/L (20-31); CHLORIDE LEVEL 107 MMOL/L (98-107); CREATININE FOR GFR 0.79 MG/DL (0.70-1.30); GLOMERULAR FILTRATION RATE > 60.0 (>42); GLUCOSE, FASTING 94 MG/DL (74-106); SODIUM LEVEL 136 MMOL/L (136-145); TOTAL PROTEIN 5.4 G/DL (5.7-8.2)
[2024-05-17 07:51] VITALS: BP 133/61; TEMP 97.6; O2SAT 93
[2024-05-17 12:21] VITALS: BP 100/59; TEMP 97.1; O2SAT 91
[2024-05-17 16:06] VITALS: BP 104/58; TEMP 97.6; O2SAT 95
[2024-05-17 20:00] VITALS: BP 112/57; TEMP 98.2; O2SAT 97
[2024-05-18] VITALS (7 sets, daily range): BP systolic 104–116; BP diastolic 56–57; TEMP 98–98.6; O2SAT 92–98
[2024-05-18 07:17] LABS: HEMOGLOBIN 11.7 g/dl (13.5-17.5); MEAN CORPUSCULAR HEMOGLOBIN 31.3 pg (27.0-33.0); MEAN CORPUSCULAR HGB CONC 32.5 g/dl (32.0-36.5); MEAN CORPUSCULAR VOLUME 96.3 fl (80.0-96.0); PLATELET COUNT, AUTOMATED 147 10^3/uL (150-450); RED BLOOD COUNT 3.74 10^6/uL (4.30-6.10); WHITE BLOOD COUNT 6.7 10^3/uL (4.0-10.0)
[2024-05-18 08:05] LABS: ALBUMIN 2.1 G/DL (3.2-5.2); ALKALINE PHOSPHATASE 87 U/L (46-116); ALT/SGPT 81 U/L (7.0-40); AST/SGOT 116 U/L (<34); BILIRUBIN,TOTAL 0.4 MG/DL (0.3-1.2); BLOOD UREA NITROGEN 16 MG/DL (9-23); CALCIUM LEVEL 8.7 MG/DL (8.3-10.6); CARBON DIOXIDE LEVEL 33 MMOL/L (20-31); CHLORIDE LEVEL 102 MMOL/L (98-107); CREATININE FOR GFR 0.78 MG/DL (0.70-1.30); GLOMERULAR FILTRATION RATE > 60.0 (>42); GLUCOSE, FASTING 93 MG/DL (74-106); POTASSIUM SERUM 3.9 MMOL/L (3.5-5.1); SODIUM LEVEL 136 MMOL/L (136-145); TOTAL PROTEIN 5.7 G/DL (5.7-8.2)
== END 2024-05-18 13:22 | disposition home health service (06) | DRG 180 ==
LOC: M ED 14:29 → M ED INP 18:15 → M PCU 20:05
PROVIDERS: ADMIT Internal Medicine; ATTEND Internal Medicine
PROC: 0W9930Z Drainage of Right Pleural Cavity with Drainage Device, Percutaneous Approach (ICD-10-PCS; principal; 2024-05-12)
PROC: 3E0L329 Introduction of Other Anti-infective into Pleural Cavity, Percutaneous Approach (ICD-10-PCS; 2024-05-15)
DX: C34.31 Malignant neoplasm of lower lobe, right bronchus or lung (principal); J96.21 Acute and chronic respiratory failure with hypoxia; J18.9 Pneumonia, unspecified organism; J94.8 Other specified pleural conditions; J91.0 Malignant pleural effusion; I25.10 Atherosclerotic heart disease of native coronary artery without angina pectoris; J44.9 Chronic obstructive pulmonary disease, unspecified; E78.5 Hyperlipidemia, unspecified; I10 Essential (primary) hypertension; K21.9 Gastro-esophageal reflux disease without esophagitis; I27.20 Pulmonary hypertension, unspecified; I08.1 Rheumatic disorders of both mitral and tricuspid valves; Z79.82 Long term (current) use of aspirin; Z79.899 Other long term (current) drug therapy; Z88.1 Allergy status to other antibiotic agents; Z87.891 Personal history of nicotine dependence; Z11.52 Encounter for screening for COVID-19; Z99.81 Dependence on supplemental oxygen